=== PATIENT | female | born 1990 | race Caucasian/White ===

== ENCOUNTER 2018-07-02 12:16 | Inpatient (IN) ==
[2018-07-02] MEDS ORDERED: LEVSIN/MAALOX/LIDOC VISC PO ONE (12:41)
[2018-07-02] MEDS ORDERED: ZOFRAN INJ 4 MG VIAL IVP ONE (12:41)
--- NOTE | 2018-07-02 12:43 | ED.ABDFE ---
HPI - PCP Primary Care Physician: NFD - Complaint Chief Complaint Doctors Comments: Patient is complaining of epigastric pain for about a week that has gotten progressively worst today with vomiting everytime she eat or drink anything. States the pain is worst when she eat or drink anything with the pain being 7 of 10. states she do not have a local doctor and has a history of hypertension and endometrosis. she has had a bilateral tubaligation in 2016. She denies dysura, hematuria or amrita. She smokes 1/2 pack daily and drinks liquor and beer about twice yearly. States she thinks she has an ulcer but has not been diagnosed with one. Chief Complaint:: PATIENT STATED THAT SHE IS HAVING SEVERE UPPER GI PAIN. SHE IS VOMITING AT THIS TIME. SHE STATED THAT HAS LOST ALOT OF WEIGHT SINCE AND SHE CAN'T KEEP ANYTHING DOWN. - Nurses notes reviewed Nurses Notes Review: Yes - Source History Provided: Patient - Mode of arrival Mode of Arrival: Ambulatory - Timing Onset of Chief Complaint: 07/02/18 Came on: Suddenly - Duration Duration: Since Onset How lon Duration: Days - Location Location: RUQ, Epigastric - Severity Severity: Moderate - Quality Quality: Aching, Sharp, Generalized - Context Onset: Gradually History of: Abdominal surgery, Similar pain (dx) - Modifying Worsening Factors: Food Improving Factors: Nothing - Associated signs and symptoms Associated Signs and Symptoms: None, Nausea - Time seen Time Seen by Provider: 07/02/18 12:31 PMH - PMH Past Medical History: Yes Past Medical History: Hypertension Past Surgical History: Yes - Family History History of Family Medical Conditions: No - Social History Does patient currently use any type of tobacco product: No Have you used tobacco products in the last 12 months: No Type of Tobacco Use: None Does any household member use tobacco: No Alcohol Use: Rarely Do you use any recreational Drugs:: No Lives With: Family Lives Where: Home - infectious screening In the last 2 months have you had wt loss of >10#?: NO Have you had fever, night sweats or hemotysis?: No Have you traveled outside the country in the last 6 months?: No Isolation: Standard ROS - Review of Systems Constitutional: No Symptoms Reported, Loss of Appetite Eyes: No Symptoms Reported ENTM: No Symptoms Reported Respiratoy: No Symptoms Reported Cardiovascular: No Symptoms Reported Gastrointestinal/Abdominal: No Symptoms Reported, Abdominal Pain, Nausea Genitourinary: No Symptoms Reported Neurological: No Symptoms Reported Musculoskeletal: No Symptoms Reported Integumentary: No Symptoms Reported Hematologic/Lymphatic: No Symptoms Reported Endocrine: No Symptoms Reported Psychiatric: No Symptoms Reported. negative: See HPI, Anxiety, Depression, Elliott lucinations, Excessive crying, Suicidal, Other PE - General Limitations: No Limitations General Appearance: Alert, In Distress (moderate) - Head Head Exam: Normal Inspection, Atraumatic, Normocephalic - Eyes Eye exam: Normal Appearance, PERRL, EOMI. negative: Scleral Icterus, Conjunctival Injection, Nystagmus, Miosis, Mydrasis, Periorbital Swelling, Periorbital Tenderness, Other - ENT ENT Exam: Normal Exam, Normal Oropharynx, Normal External Ear Exam, Mucous Membranes Moist, TM's Normal Bilaterally - Neck Neck Exam: Normal Inspection, Full ROM, Trachea Midline - Chest Chest Inspection: Normal Inspection, Symmetric Chest Wall Rise. negative: Tenderness, Rash, Abscess, Other - Respiratory Respiratory Exam: Normal Lung Sounds Bilat Respiratory Exam: Bilateral Clear to Auscultation - Cardiovascular Cardiovascular Exam: Regular Rate, Normal Rhythm, Normal Heart Sounds. negative: Bradycardia, Tachycardia, Irregular Rhythm, Systolic Murmur, Diastolic Murmur, Rubs, Gallop, Clicks, JVD, +S1, +S2, +S3, +S4, Other - Abdominal Exam Abdominal Exam: Normal Inspection, Normal Bowel Sounds, Soft, Tenderness (epigastric tenderness) Abdominal Tenderness: Epigastrium, Moderate - Rectal Rectal Exam: Deferred - Back Back Exam: Normal Inspection, Full ROM. negative: Tenderness, (R) CVA Tenderness, (L) CVA Tenderness, Muscle Spasm, Paraspinal Tenderness, Vertebral Tenderness, Rashes, (R) Sciatic Notch Tenderness, (L) Sciatic Notch Tendern, (R) Straight Leg Raise, (L) Straight Leg Raise, Other - Extremeties Extremities Exam: Normal Inspection, Full ROM, Tenderness, Normal Capillary Refill - External Exam: Female: Deferred : Bimanual Exam (female): Deferred - Neurologic Neurological Exam: Alert, Oriented X3, CN II-XII Intact, Reflexes Normal. negative: Normal Gait - Psychiatric Psychiatric Exam: Normal Affect, Normal Mood - Skin Skin Exam: Warm, Dry, Intact, Normal Color - Vital Signs Vitals: Temperature 98.4 F Pulse Rate 69 Respiratory Rate 20 Blood Pressure 135/55 O2 Sat by Pulse Oximetry 98 Course - Reevaluation 1st: Improved - Consultation Called: 14:09 Call Returned: 14:09 (Dr. Nice to admit) - Education/Counseling Education/Counseling: Patient, Family Educated On: Treatment, Diagnosis, Needs for Follow Up ROR - Labs Reviewed Laboratory Results Reviewed?: Yes (All labs and x-ray results reviewed and discussed with patient) Result Diagrams: 07/02/18 13:00 07/02/18 13:00 - XRAY XRAY Interpreted by: Radiologist (CT abdomen: Increased density within the dependent portion of the gallbladder for whick layering sludge or small stones would be suspected.) - Labs Reviewed Laboratory: WBC 10.9 X10^3/uL (3.6-10.0) H 07/02/18 13:00 RBC 4.72 X10^6/uL (3.5-5.4) 07/02/18 13:00 Hgb 13.4 g/dL (12.0-16.0) 07/02/18 13:00 Hct 39.9 % (36.0-47.0) 07/02/18 13:00 MCV 84.4 fL (80.0-100.0) 07/02/18 13:00 MCH 28.3 pg (27.0-34.0) 07/02/18 13:00 MCHC 33.5 g/dL (33.0-35.0) 07/02/18 13:00 RDW 14.2 % (11.6-16.5) 07/02/18 13:00 Plt Count 391 X10^3/uL (150.0-450.0) 07/02/18 13:00 MPV 9.0 fL (7.4-11.0) 07/02/18 13:00 Neut % (Auto) 79.3 % (42.0-75.0) H 07/02/18 13:00 Lymph % (Auto) 12.7 % (21.0-51.0) L 07/02/18 13:00 [place] % (Auto) 7.1 % (0.0-13.0) 07/02/18 13:00 Eos % (Auto) 0.5 % (0.9-2.9) L 07/02/18 13:00 Baso % (Auto) 0.4 % (0.2-1.0) 07/02/18 13:00 Neut # (Auto) 8.6 x10^3/uL (2.2-4.8) H 07/02/18 13:00 Lymph # (Auto) 1.4 X10^3/uL (1.3-2.9) 07/02/18 13:00 [place] # (Auto) 0.8 x10^3/uL (0.3-0.8) 07/02/18 13:00 Eos # (Auto) 0.1 x10^3/uL (0.0-0.2) 07/02/18 13:00 Baso # (Auto) 0.0 X10^3/uL (0.0-0.1) 07/02/18 13:00 Absolute Nucleated RBC 0.0 /100WBC 07/02/18 13:00 Sodium 140 mmol/L (136-145) 07/02/18 13:00 Corrected Sodium TNP 07/02/18 13:00 Potassium 3.5 mmol/L (3.5-5.1) 07/02/18 13:00 Chloride 102 mmol/L (98-107) 07/02/18 13:00 Carbon Dioxide 26.6 mmol/L (21-32) 07/02/18 13:00 BUN 15 mg/dL (7-18) 07/02/18 13:00 Creatinine 0.70 mg/dL (0.55-1.02) 07/02/18 13:00 Est GFR (MDRD) Af Amer > 60 (>60) 07/02/18 13:00 Est GFR (MDRD) Non-Af > 60 (>60) 07/02/18 13:00 Glucose 110 mg/dL (65-99) H 07/02/18 13:00 Calcium 9.6 mg/dL (8.5-10.1) 07/02/18 13:00 Corrected Calcium TNP 07/02/18 13:00 Total Bilirubin 0.90 mg/dL (0.2-1.0) 07/02/18 13:00 AST 337 Units/L (15-37) H 07/02/18 13:00 ALT 765 Units/L (12-78) H 07/02/18 13:00 Alkaline Phosphatase 585 Units/L (46-116) H 07/02/18 13:00 Total Protein 8.3 g/dL (6.4-8.2) H 07/02/18 13:00 Albumin 4.1 g/dL (3.4-5.0) 07/02/18 13:00 Globulin 4.2 g/dL (2.5-4.5) 07/02/18 13:00 Albumin/Globulin Ratio 1.0 Ratio (1.1-2.1) L 07/02/18 13:00 Amylase 36 Units/L (25-115) 07/02/18 13:00 Lipase 105 Units/L (73-393) 07/02/18 13:00 HCG, Qual Negative <10 mIU/mL 07/02/18 13:00 - Diagnosis Discharge Problem: Cholelithiasis, Gastritis, Hyperglycemia, Abnormal liver enzymes Abdominal pain Qualifiers: Abdominal location: right upper quadrant Qualified Code(s): R10.11 - Right upper quadrant pain - Discharge Plan Disposition: ADMITTED INPATIENT Condition: Stable - Follow ups/Referrals Follow ups/Referrals: NFD,None [Primary Care Provider] - 3 days - Instructions
[2018-07-02] MEDS ORDERED: ZOFRAN INJ 4 MG VIAL ONE (13:02)
[2018-07-02 13:07] LABS: BASOPHILS % (AUTO) 0.4 % (0.2-1.0); EOSINOPHILS # (AUTO) 0.1 x10^3/uL (0.0-0.2); EOSINOPHILS % (AUTO) 0.5 % (0.9-2.9); HEMATOCRIT 39.9 % (36.0-47.0); HEMOGLOBIN 13.4 g/dL (12.0-16.0); LYMPHOCYTES # (AUTO) 1.4 X10^3/uL (1.3-2.9); LYMPHOCYTES % (AUTO) 12.7 % (21.0-51.0); MEAN CORPUSCULAR HEMOGLOBIN 28.3 pg (27.0-34.0); MEAN CORPUSCULAR HGB CONC 33.5 g/dL (33.0-35.0); MEAN CORPUSCULAR VOLUME 84.4 fL (80.0-100.0); MONOCYTES # (AUTO) 0.8 x10^3/uL (0.3-0.8); MONOCYTES % (AUTO) 7.1 % (0.0-13.0); NEUTROPHILS # (AUTO) 8.6 x10^3/uL (2.2-4.8); NEUTROPHILS % (AUTO) 79.3 % (42.0-75.0); PLATELET COUNT 391 X10^3/uL (150.0-450.0); RED BLOOD COUNT 4.72 X10^6/uL (3.5-5.4); RED CELL DISTRIBUTION WIDTH 14.2 % (11.6-16.5); WHITE BLOOD COUNT 10.9 X10^3/uL (3.6-10.0)
--- NOTE | 2018-07-02 13:09 | CT ---
HISTORY: Right upper quadrant and epigastric pain Study: CT abdomen and pelvis without contrast Comparison: None Technique: Multiple axial images of the abdomen and pelvis were obtained from the lung bases to the pubic symphysis without the administration of IV contrast. Findings: The visualized portions of the lung bases are unremarkable. The liver, spleen, pancreas, kidneys, and adrenal glands are unremarkable in their CT appearance. Density layering within the dependent portion of the gallbladder is observed may represent small stones or layering sludge. Right upper quadrant abdominal ultrasound would better well characterize these findings. A retrocecal appendix is incidentally noted but normal in CT appearance. No significant mesenteric lymphadenopathy or stranding can be observed. No free fluid or free air is seen within the abdomen. No bowel wall thickening or bowel dilatation is present. The colon is unremarkable. Specifically, there is no diverticulosis noted within the sigmoid colon. The urinary bladder is grossly unremarkable. The bony structures are grossly intact. IMPRESSION: Increased density within the dependent portion of the gallbladder for which layering sludge or small stones would be suspected. Right upper quadrant abdominal ultrasound is recommended for further characterization. No CT evidence for acute cholecystitis can be identified at this time. Reported By:
[2018-07-02 13:29] LABS: ALANINE AMINOTRANSFERASE 765 Units/L (12-78); ALBUMIN 4.1 g/dL (3.4-5.0); ALKALINE PHOSPHATASE 585 Units/L (46-116); AMYLASE 36 Units/L (25-115); ASPARTATE AMINO TRANSFERASE 337 Units/L (15-37); BLOOD UREA NITROGEN 15 mg/dL (7-18); CALCIUM 9.6 mg/dL (8.5-10.1); CARBON DIOXIDE 26.6 mmol/L (21-32); CHLORIDE 102 mmol/L (98-107); LIPASE 105 Units/L (73-393); SODIUM 140 mmol/L (136-145); TOTAL PROTEIN 8.3 g/dL (6.4-8.2); eGFR NON BLACK RACES > 60 (>60)
[2018-07-02 13:31] LABS: SERUM PREGNANCY TEST, QUAL NEGATIVE <10 mIU/mL
[2018-07-02] MEDS ORDERED: LEVSIN/MAALOX/LIDOC VISC ONE (14:36)
[2018-07-02] MEDS: NS 1/2 + KCL 20 MEQ/L 1,000 ML IV SCH ×2 (15:44→23:02)
[2018-07-02] MEDS: TORADOL 30 MG VIAL IVP PRN (15:44)
[2018-07-02] MEDS: ZOSYN VIAL 3.375 GRAMS 3.375 G in NS 100 ML IV + SPIKE MINIBAG* 100 ML IV SCH ×2 (15:44→22:05)
[2018-07-02] MEDS: PEPCID 20 MG IV PREMIX* 20 MG/50 ML BAG IV PRN (15:45)
[2018-07-02] MEDS: ZOFRAN INJ 4 MG VIAL IVP PRN (20:05)
[2018-07-02 23:06] LABS: BILIRUBIN,URINE NEGATIVE (NEGATIVE); BLOOD/HEMOGLOBIN,URINE NEGATIVE (NEGATIVE); GLUCOSE, URINE NEGATIVE (NEGATIVE); KETONES,URINE 2+ (NEGATIVE); LEUKOCYTE ESTERASE ,URINE 1+ (NEGATIVE); NITRITES,URINE NEGATIVE (NEGATIVE); PROTEIN,URINE 1+ (NEGATIVE); UROBILINOGEN,URINE NORMAL (NORMAL)
[2018-07-02 23:14] LABS: APPEARANCE,URINE CLOUDY (CLEAR); COLOR,URINE YELLOW (YELLOW)
[2018-07-02 23:21] LABS: BACTERIA,URINE 1+ /HPF (NEGATIVE); RBC,URINE NONE SEEN /HPF (NONE SEEN); SQUAMOUS EPITHELIAL CELL,UR NUMEROUS /HPF (NEGATIVE)
[2018-07-03] MEDS: ZOFRAN INJ 4 MG VIAL IVP PRN ×2 (04:21→16:25)
[2018-07-03] MEDS: ZOSYN VIAL 3.375 GRAMS 3.375 G in NS 100 ML IV + SPIKE MINIBAG* 100 ML IV SCH ×3 (05:04→21:06)
[2018-07-03 05:19] LABS: BASOPHILS % (AUTO) 0.6 % (0.2-1.0); EOSINOPHILS # (AUTO) 0.2 x10^3/uL (0.0-0.2); EOSINOPHILS % (AUTO) 2.5 % (0.9-2.9); HEMOGLOBIN 11.5 g/dL (12.0-16.0); LYMPHOCYTES # (AUTO) 2.5 X10^3/uL (1.3-2.9); LYMPHOCYTES % (AUTO) 35.6 % (21.0-51.0); MEAN CORPUSCULAR HEMOGLOBIN 28.2 pg (27.0-34.0); MEAN CORPUSCULAR VOLUME 85.5 fL (80.0-100.0); MEAN PLATELET VOLUME 9.6 fL (7.4-11.0); MONOCYTES # (AUTO) 0.6 x10^3/uL (0.3-0.8); MONOCYTES % (AUTO) 8.8 % (0.0-13.0); NEUTROPHILS # (AUTO) 3.7 x10^3/uL (2.2-4.8); NEUTROPHILS % (AUTO) 52.5 % (42.0-75.0); PLATELET COUNT 347 X10^3/uL (150.0-450.0); RED BLOOD COUNT 4.09 X10^6/uL (3.5-5.4); RED CELL DISTRIBUTION WIDTH 14.5 % (11.6-16.5)
[2018-07-03 05:37] LABS: ALANINE AMINOTRANSFERASE 663 Units/L (12-78); ALKALINE PHOSPHATASE 425 Units/L (46-116); ASPARTATE AMINO TRANSFERASE 282 Units/L (15-37); BLOOD UREA NITROGEN 15 mg/dL (7-18); CALCIUM 8.6 mg/dL (8.5-10.1); CARBON DIOXIDE 25.7 mmol/L (21-32); CHLORIDE 106 mmol/L (98-107); COR CA(FOR HYPOALB) 9.4 mg/dL (8.5-10.1); CREATININE 0.69 mg/dL (0.55-1.02); SODIUM 140 mmol/L (136-145); TOTAL PROTEIN 6.5 g/dL (6.4-8.2); eGFR NON BLACK RACES > 60 (>60)
[2018-07-03] MEDS: NS 1/2 + KCL 20 MEQ/L 1,000 ML IV SCH ×3 (07:10→21:06)
[2018-07-03] MEDS: TORADOL 30 MG VIAL IVP PRN ×2 (07:10→16:25)
--- NOTE | 2018-07-03 11:04 | DR.H&P ---
H&P - History & Physical for Day of: H&P Date: 07/02/18 - Chief Complaint Chief Complaint: UPPER ABDOMINAL PAIN, N/V - History of Present Illness History of Present Illness: 28F ER ADMISSION WITH CO UPPER ABDOMINAL PAIN WITH N/V, PERSISTANT FOR SEVERAL DAYS. PT HAD ELEVATED LFT'S ON CMP IN ER AND ABNORMAL GB FINDINGS ON CT. PT DENIES ANY KNOWN HX OF GALLBLADDER DISEASE. 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 - Social History Does patient currently use any type of tobacco product: No Have you used tobacco products in the last 12 months: No Type of Tobacco Use: None Does any household member use tobacco: No Alcohol Use: Rarely Drug Use: None - Medications Home Medications: No Known Drug Allergies Allergy (Verified 07/02/18 13:08) CONTINUE taking the following medications NK 07/02/18 [History] - Review of Systems Constitutional: No Symptoms Reported Eyes: No Symptoms Reported ENT: No Symptoms Reported Respiratory: No Symptoms Reported Cardiovascular: No Symptoms Reported Gastrointestinal: Nausea, Vomiting, Abdominal Pain Genitourinary: No Symptoms Reported Musculoskeletal: No Symptoms Reported Skin: No Symptoms Reported Neurological: No Symptoms Reported - Physical Exam Vital Signs: Temperature 97.9 F Pulse Rate [Left Brachial] 58 Pulse Rate 69 Respiratory Rate 20 Blood Pressure [Left Arm] 94/50 Blood Pressure 135/55 O2 Sat by Pulse Oximetry 100 Oriented: Normal Eyes: Normal Ear: Normal Nose: Normal Throat: Normal Respiratory: Clear Throughout Cardiovascular: Normal : Normal Auscultation: Bowel Sounds: Normal Palpation: Normal Tenderness: RUQ, Epigastric Skin: Normal Musculoskeletal: Normal Psychiatric: Normal Speech Pattern: Clear, Appropriate - Assessment/Plan (1) Abdominal pain Qualifiers: Abdominal location: right upper quadrant Qualified Code(s): R10.11 - Right upper quadrant pain Status: Acute Plan: ADMIT, NPO, GENTLE IV HYDRATION. GB US, THEN CONSULT DR SIMS. PAIN AND NAUSEA CONTROL, BP MONITORING. VERIFY HOME MEDICATION, REPEAT AM LABS (2) Cholelithiasis Status: Acute (3) Gastritis Status: Acute (4) Abnormal liver enzymes Status: Acute - Allergies Allergies/Adverse Reactions: Allergies Allergy/AdvReac Type Severity Reaction Status Date / Time No Known Drug Allergies Allergy Verified 07/02/18 13:08
[2018-07-03] MEDS ORDERED: COLACE CAP 100 MG PO PRN (16:00)
[2018-07-03] MEDS ORDERED: MILK OF MAGNESIA PO PRN (16:00)
[2018-07-03] MEDS ORDERED: PHENERGAN INJ 25 MG ONE (17:14)
[2018-07-03] MEDS: PHENERGAN INJ 25 MG IV PRN (17:21)
[2018-07-04] MEDS: NS 1/2 + KCL 20 MEQ/L 1,000 ML IV SCH ×6 (00:01→21:25)
[2018-07-04] MEDS: ZOSYN VIAL 3.375 GRAMS 3.375 G in NS 100 ML IV + SPIKE MINIBAG* 100 ML IV SCH ×3 (05:14→21:26)
[2018-07-04 05:54] LABS: BASOPHILS # (AUTO) 0.1 X10^3/uL (0.0-0.1); BASOPHILS % (AUTO) 1.2 % (0.2-1.0); EOSINOPHILS # (AUTO) 0.2 x10^3/uL (0.0-0.2); EOSINOPHILS % (AUTO) 3.1 % (0.9-2.9); HEMOGLOBIN 11.7 g/dL (12.0-16.0); LYMPHOCYTES % (AUTO) 39.6 % (21.0-51.0); MEAN CORPUSCULAR HEMOGLOBIN 28.4 pg (27.0-34.0); MEAN CORPUSCULAR HGB CONC 33.3 g/dL (33.0-35.0); MEAN CORPUSCULAR VOLUME 85.2 fL (80.0-100.0); MEAN PLATELET VOLUME 9.2 fL (7.4-11.0); MONOCYTES # (AUTO) 0.5 x10^3/uL (0.3-0.8); MONOCYTES % (AUTO) 10.4 % (0.0-13.0); NEUTROPHILS # (AUTO) 2.3 x10^3/uL (2.2-4.8); NEUTROPHILS % (AUTO) 45.7 % (42.0-75.0); PLATELET COUNT 320 X10^3/uL (150.0-450.0); RED BLOOD COUNT 4.11 X10^6/uL (3.5-5.4); RED CELL DISTRIBUTION WIDTH 14.4 % (11.6-16.5)
[2018-07-04 06:13] LABS: ALANINE AMINOTRANSFERASE 645 Units/L (12-78); ALKALINE PHOSPHATASE 408 Units/L (46-116); ASPARTATE AMINO TRANSFERASE 300 Units/L (15-37); BLOOD UREA NITROGEN 11 mg/dL (7-18); CALCIUM 8.6 mg/dL (8.5-10.1); CARBON DIOXIDE 27.1 mmol/L (21-32); CHLORIDE 107 mmol/L (98-107); COR CA(FOR HYPOALB) 9.4 mg/dL (8.5-10.1); CREATININE 0.71 mg/dL (0.55-1.02); SODIUM 139 mmol/L (136-145); TOTAL PROTEIN 6.3 g/dL (6.4-8.2); eGFR NON BLACK RACES > 60 (>60)
--- NOTE | 2018-07-04 10:05 | US ---
HISTORY: Right upper quadrant pain. Study: Right upper quadrant ultrasound: Multiplanar ultrasonographic examination of the right upper abdominal quadrant was performed. Comparison: CT scan 07/02/2018 Findings: On the images submitted me the liver is of normal size and echotexture. It appears to be minimally fatty infiltrated. Vascular flow was in normal direction. Gallbladder shows near complete shadowing felt to most likely be due to numerous gallstones in a contracted gallbladder. There appears to be mild gallbladder wall thickening measuring up to 5.5 mm in thickness. The common bile duct is normal at 3 mm. The right kidney as visualized is of normal size, echogenicity and echotexture measuring 9.7 cm in length by 4.4 x 5.4 cm. The resistive index is 0.24. The pancreas is visualized is normal. IMPRESSION: 1. Cholelithiasis with findings suggesting the possibility of cholecystitis. Clinical correlation is recommended. 2. Minimal fatty infiltration of the liver. Reported By:
--- NOTE | 2018-07-04 10:12 | MRI ---
MR abdomen without contrast MRCP Indication: Abnormal liver function tests and nausea. Right upper quadrant pain Comparison: 07/02/2018 CT abdomen and pelvis and ultrasound from 07/04/2018 Technique: Multiplanar multisequence imaging through the abdomen without contrast. MRCP and 3D images provided. Findings: Bone marrow signal is relatively normal. Spinal canal is normal. Limited images the lower chest show no acute abnormality. The liver, spleen, adrenal glands and pancreas are normal. Neurovascular structures are normal. Visualized bowel loops show no significant abnormality. Urinary bladder partially visualized uterus appears normal. No adnexal region lesions seen. Appendix is normal. There is [place] cap of the gallbladder, in the gallbladder is filled with stones. There is mild dilatation of the common bile duct to 1 cm on coronal image 17 with minimal intrahepatic biliary dilatation. Filling defects seen at the distal common bile duct, just proximal to the ampulla of Vater is noted on coronal image 18, with 2 stones suggested-proximal stone measuring 3 mm, distal stone measuring 5 mm. Kidneys are grossly normal with tiny left lower pole renal cyst noted. Out of phase imaging shows no signal drop suggest hepatic steatosis. Axial T2 image nineteen, series 1101 confirm stone in the common bile duct. MRCP image 49 also shows common bile duct stone. There are questionable areas of mild narrowing at the confluence of the left and right main hepatic ducts on coronal images 46, and narrowing of the common bile duct, just distal to the stones on coronal image 50. Impression: 1. Two stones in the distal common bile duct, just above the ampulla of Vater, with proximal biliary dilatation. 2. Numerous gallstones in the gallbladder 3. Areas of narrowing at the left and right hepatic duct confluence and the distal common bile duct are nonspecific. ERCP follow-up recommended. Underlying strictures or inflammatory change from biliary infection or primary sclerosing cholangitis not excluded. Reported By:
[2018-07-04] MEDS ORDERED: BACTROBAN TOPICAL OINT ONE (10:16)
[2018-07-04] MEDS ORDERED: ANCEF VIAL 1 GRAM ONE (10:16)
[2018-07-04] MEDS ORDERED: LR 1000 ML IV 1,000 ML IV ONE (10:16)
[2018-07-04] MEDS ORDERED: DILAUDID INJ IVP PRN (12:05)
[2018-07-04] MEDS ORDERED: BENADRYL INJ 50 MG VIAL IVP PRN (12:05)
[2018-07-04] MEDS ORDERED: PHENERGAN INJ 25 MG IVP PRN (12:05)
[2018-07-04] MEDS ORDERED: REGLAN INJ 10 MG VIAL IVP PRN (12:05)
[2018-07-04] MEDS ORDERED: ZOFRAN INJ 4 MG VIAL IVP PRN (12:05)
[2018-07-04] MEDS ORDERED: DILAUDID INJ ONE (12:17)
[2018-07-04 12:43] VITALS: BMI 30.9
[2018-07-04] MEDS ORDERED: NS IRRIGATION 3000 ML ONE (13:47)
[2018-07-04] MEDS ORDERED: XYLOCAINE 1 % (PLAIN) ONE (15:25)
[2018-07-04] MEDS ORDERED: NEOSTIGMINE INJ ONE (15:25)
[2018-07-04] MEDS ORDERED: SUPRANE IN ONE (15:25)
[2018-07-04] MEDS ORDERED: TORADOL 30 MG VIAL ONE (15:25)
[2018-07-04] MEDS ORDERED: ZOFRAN INJ 4 MG VIAL ONE (15:25)
[2018-07-04] MEDS ORDERED: NORCURON INJ 10 MG VIAL ONE (15:25)
[2018-07-04] MEDS ORDERED: QUELICIN (OR ANECTINE) ONE (15:25)
[2018-07-04] MEDS ORDERED: VERSED ONE (15:25)
[2018-07-04] MEDS ORDERED: ROBINUL ONE (15:25)
[2018-07-04] MEDS ORDERED: DIPRIVAN VIAL ONE (15:25)
--- NOTE | 2018-07-04 17:24 | PCM.PROG ---
Progress Note - Progress Note for Day of Date of Exam: 07/03/18 - Subjective Subjective: 28 WF ADMITTED ON 07/02 WITH RUQ PAIN N/V, POSSILBE ACUTE CHOLECYSTITIS WITH ELEVATED LIVER ENZYMES. PT CURRENTLY ON CLEAR LIQUIDS AND PAIN CONTROL. SURGICAL CONSULT, AM GB US AND MRCP. - Past Medical Family Social History Past Med/Fam/Surg Hx: No changes since H&P Allergies: Allergies No Known Drug Allergies Allergy (Verified 07/02/18 13:08) - Review of Systems ROS: No change since H&P - Vital Signs and I&O's Vital Signs: Temperature 97.0 F Pulse Rate [Left Brachial] 51 Pulse Rate 59 Respiratory Rate 18 Blood Pressure [Left Arm] 103/64 Blood Pressure 94/54 O2 Sat by Pulse Oximetry 97 Intake and Output: Intake & Output 07/02/18 07/03/18 07/04/18 07/05/18 11:59 11:59 11:59 11:59 Intake Total 2120 / 2120 3770 / 3770 120 / 120 Output Total 100 / 100 1750 / 1750 Balance 2019 3770 / 3770 -1630 / -1630 - Physical Exam Oriented: Normal Eyes: Normal Ear: Normal Nose: Normal Throat: Normal Respiratory: Normal Cardiovascular: Normal : Normal Auscultation: Bowel Sounds: Normal Tenderness: RUQ, Epigastric Skin: Normal Musculoskeletal: Normal Psychiatric: Normal Mood Description: Calm Speech Pattern: Clear, Appropriate - Laboratory and Diagnostics Result Diagrams: 07/04/18 05:41 07/04/18 05:41 Labs: 07/02/18 22:35 Urine,Clean Catch Urine Culture - Final Laboratory WBC 5.0 X10^3/uL (3.6-10.0) 07/04/18 05:41 RBC 4.11 X10^6/uL (3.5-5.4) 07/04/18 05:41 Hgb 11.7 g/dL (12.0-16.0) L 07/04/18 05:41 Hct 35.0 % (36.0-47.0) L 07/04/18 05:41 MCV 85.2 fL (80.0-100.0) 07/04/18 05:41 MCH 28.4 pg (27.0-34.0) 07/04/18 05:41 MCHC 33.3 g/dL (33.0-35.0) 07/04/18 05:41 RDW 14.4 % (11.6-16.5) 07/04/18 05:41 Plt Count 320 X10^3/uL (150.0-450.0) 07/04/18 05:41 MPV 9.2 fL (7.4-11.0) 07/04/18 05:41 Neut % (Auto) 45.7 % (42.0-75.0) 07/04/18 05:41 Lymph % (Auto) 39.6 % (21.0-51.0) 07/04/18 05:41 [place] % (Auto) 10.4 % (0.0-13.0) 07/04/18 05:41 Eos % (Auto) 3.1 % (0.9-2.9) H 07/04/18 05:41 Baso % (Auto) 1.2 % (0.2-1.0) H 07/04/18 05:41 Neut # (Auto) 2.3 x10^3/uL (2.2-4.8) 07/04/18 05:41 Lymph # (Auto) 2.0 X10^3/uL (1.3-2.9) 07/04/18 05:41 [place] # (Auto) 0.5 x10^3/uL (0.3-0.8) 07/04/18 05:41 Eos # (Auto) 0.2 x10^3/uL (0.0-0.2) 07/04/18 05:41 Baso # (Auto) 0.1 X10^3/uL (0.0-0.1) 07/04/18 05:41 Absolute Nucleated RBC 0.0 /100WBC 07/04/18 05:41 Sodium 139 mmol/L (136-145) 07/04/18 05:41 Corrected Sodium TNP 07/04/18 05:41 Potassium 4.3 mmol/L (3.5-5.1) 07/04/18 05:41 Chloride 107 mmol/L (98-107) 07/04/18 05:41 Carbon Dioxide 27.1 mmol/L (21-32) 07/04/18 05:41 BUN 11 mg/dL (7-18) 07/04/18 05:41 Creatinine 0.71 mg/dL (0.55-1.02) 07/04/18 05:41 Est GFR (MDRD) Af Amer > 60 (>60) 07/04/18 05:41 Est GFR (MDRD) Non-Af > 60 (>60) 07/04/18 05:41 Glucose 92 mg/dL (65-99) 07/04/18 05:41 Calcium 8.6 mg/dL (8.5-10.1) 07/04/18 05:41 Corrected Calcium 9.4 mg/dL (8.5-10.1) 07/04/18 05:41 Total Bilirubin 1.10 mg/dL (0.2-1.0) H 07/04/18 05:41 AST 300 Units/L (15-37) H 07/04/18 05:41 ALT 645 Units/L (12-78) H 07/04/18 05:41 Alkaline Phosphatase 408 Units/L (46-116) H 07/04/18 05:41 Total Protein 6.3 g/dL (6.4-8.2) L 07/04/18 05:41 Albumin 3.0 g/dL (3.4-5.0) L 07/04/18 05:41 Globulin 3.3 g/dL (2.5-4.5) 07/04/18 05:41 Albumin/Globulin Ratio 0.9 Ratio (1.1-2.1) L 07/04/18 05:41 Amylase 36 Units/L (25-115) 07/02/18 13:00 Lipase 105 Units/L (73-393) 07/02/18 13:00 HCG, Qual Negative <10 mIU/mL 07/02/18 13:00 Specimen Type Clean catch urine 07/02/18 22:35 Urine Color Yellow (YELLOW) 07/02/18 22:35 Urine Appearance Cloudy (CLEAR) 07/02/18 22:35 Urine pH 6.0 (5.0 - 8.0) 07/02/18 22:35 Ur Specific [place] 1.020 (1.000-1.030) 07/02/18 22:35 Urine Protein 1+ (NEGATIVE) 07/02/18 22:35 Urine Glucose (UA) Negative (NEGATIVE) 07/02/18 22:35 Urine Ketones 2+ (NEGATIVE) 07/02/18 22:35 Urine Occult Blood Negative (NEGATIVE) 07/02/18 22:35 Urine Nitrite Negative (NEGATIVE) 07/02/18 22:35 Urine Bilirubin Negative (NEGATIVE) 07/02/18 22:35 Urine Urobilinogen Normal (NORMAL) 07/02/18 22:35 Ur Leukocyte Esterase 1+ (NEGATIVE) 07/02/18 22:35 Urine RBC None seen /HPF (NONE SEEN) 07/02/18 22:35 Urine WBC 5-10 /HPF (NONE SEEN) 07/02/18 22:35 Ur Squamous Epith Cells Numerous /HPF (NEGATIVE) 07/02/18 22:35 Urine Bacteria 1+ /HPF (NEGATIVE) 07/02/18 22:35 Ur Culture Indicated? Yes/culture set up 07/02/18 22:35 Tissue Pathology To follow 07/04/18 12:04 - Plan (1) Abdominal pain Status: Acute Qualifiers: Abdominal location: right upper quadrant Qualified Code(s): R10.11 - Right upper quadrant pain Plan: NPO, GENTLE IV HYDRATION. GB US AND MRCP, CONSULT DR ISMS. PAIN AND NAUSEA CONTROL, BP MONITORING. VERIFY HOME MEDICATION, REPEAT AM LABS (2) Cholelithiasis Status: Acute (3) Gastritis Status: Acute (4) Abnormal liver enzymes Status: Acute
--- NOTE | 2018-07-04 17:41 | DR.CONSULT ---
Consult - Consultation for Day of: Date: 07/04/18 - Chief Complaint Chief Complaint: Patient referred for CBD stones. Pateint blairht complaints of abdominal pain. - History of Present Illness History of Present Illness: Patient is a 28yo female who was referred for CBD stones. Patient is S/P cholecystectomy performed today. Patient states she is having abdominal pain but is better than it was prior to surgery. She has been tolerating diet since surgery. MRCP done showed Two stones in the distal common bile duct, just above the ampulla of Vater, with proximal biliary dilatation, Numerous gallstones in the gallbladder and Areas of narrowing at the left and right hepatic duct confluence and the distal common bile duct are nonspecific. T. 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 - Social History Does patient currently use any type of tobacco product: No Have you used tobacco products in the last 12 months: No Type of Tobacco Use: Cigarettes (1 pack per 2 weeks) Does any household member use tobacco: No Alcohol Use: Rarely Drug Use: None - Medications Home Medications: No Known Drug Allergies Allergy (Verified 07/02/18 13:08) New Prescriptions hydrocodone-acetaminophen [[place]] 1 tab PO Q4H PRN #20 tab 07/04/18 [Rx] ondansetron HCl [Zofran] 4 mg PO Q6H PRN #20 tab 07/04/18 [Rx] - Review of Systems Gastrointestinal: See HPI, Abdominal Pain (diffuse states its more soreness now, not sharp pain like prior to having gallbladder removed.). denies: Nausea, Vomiting, Diarrhea, Constipation, Melena, Hematochezia, Other - Physical Exam Vital Signs: Temperature 98.0 F Pulse Rate [Left Brachial] 71 Pulse Rate 59 Respiratory Rate 18 Blood Pressure [Left Arm] 114/70 Blood Pressure 94/54 O2 Sat by Pulse Oximetry 97 Oriented: Normal Eyes: Normal Ear: Normal Nose: Normal Throat: Normal Respiratory: Clear Throughout Cardiovascular: Normal Auscultation: Bowel Sounds: Normal Palpation: Normal, Other (dressings noted to abdomen dry and intact). negative: Spleen Enlarged, Liver Enlarged, Mass Pulsatile Tenderness: Diffuse Skin: Normal Musculoskeletal: Normal Psychiatric: Normal Mood Description: Calm Speech Pattern: Clear, Appropriate - Plan Plan: Assessment. 1. Choledocholithiasis, S/P cholecystectomy. 2. Abnormal LFT likely secondary to Choledocholithiasis. Plan. 1. Monitor LFTS if LFTs do not improve will need ERCP and will need to be transferred to [facility] to have this performed. Plan reviewed with Dr. Bai - Allergies Allergies/Adverse Reactions: Allergies Allergy/AdvReac Type Severity Reaction Status Date / Time No Known Drug Allergies Allergy Verified 07/02/18 13:08
--- NOTE | 2018-07-04 17:53 | PCM.PROG ---
Progress Note - Progress Note for Day of Date of Exam: 07/04/18 - Subjective Subjective: 28 WF ADMITTED ON 07/02 WITH RUQ PAIN N/V, POSSILBE ACUTE CHOLECYSTITIS WITH ELEVATED LIVER ENZYMES. PT CURRENTLY NPO FOR GB US AND MRCP, PAIN CONTROL AND DR STRONG CONSULTING - Past Medical Family Social History Past Med/Fam/Surg Hx: No changes since H&P Allergies: Allergies No Known Drug Allergies Allergy (Verified 07/02/18 13:08) - Review of Systems ROS: No change since H&P - Vital Signs and I&O's Vital Signs: Temperature 98.0 F Pulse Rate [Left Brachial] 71 Pulse Rate 59 Respiratory Rate 18 Blood Pressure [Left Arm] 114/70 Blood Pressure 94/54 O2 Sat by Pulse Oximetry 97 Intake and Output: Intake & Output 07/02/18 07/03/18 07/04/18 07/05/18 11:59 11:59 11:59 11:59 Intake Total 2120 / 2120 3770 / 3770 120 / 120 Output Total 100 / 100 1750 / 1750 Balance 2019 3770 / 3770 -1630 / -1630 - Physical Exam Oriented: Normal Eyes: Normal Ear: Normal Nose: Normal Throat: Normal Respiratory: Normal Cardiovascular: Normal : Normal Auscultation: Bowel Sounds: Normal Tenderness: Diffuse Skin: Normal Musculoskeletal: Normal Psychiatric: Normal Mood Description: Calm Speech Pattern: Clear, Appropriate - Laboratory and Diagnostics Result Diagrams: 07/04/18 05:41 07/04/18 05:41 Labs: 07/02/18 22:35 Urine,Clean Catch Urine Culture - Final Laboratory WBC 5.0 X10^3/uL (3.6-10.0) 07/04/18 05:41 RBC 4.11 X10^6/uL (3.5-5.4) 07/04/18 05:41 Hgb 11.7 g/dL (12.0-16.0) L 07/04/18 05:41 Hct 35.0 % (36.0-47.0) L 07/04/18 05:41 MCV 85.2 fL (80.0-100.0) 07/04/18 05:41 MCH 28.4 pg (27.0-34.0) 07/04/18 05:41 MCHC 33.3 g/dL (33.0-35.0) 07/04/18 05:41 RDW 14.4 % (11.6-16.5) 07/04/18 05:41 Plt Count 320 X10^3/uL (150.0-450.0) 07/04/18 05:41 MPV 9.2 fL (7.4-11.0) 07/04/18 05:41 Neut % (Auto) 45.7 % (42.0-75.0) 07/04/18 05:41 Lymph % (Auto) 39.6 % (21.0-51.0) 07/04/18 05:41 [place] % (Auto) 10.4 % (0.0-13.0) 07/04/18 05:41 Eos % (Auto) 3.1 % (0.9-2.9) H 07/04/18 05:41 Baso % (Auto) 1.2 % (0.2-1.0) H 07/04/18 05:41 Neut # (Auto) 2.3 x10^3/uL (2.2-4.8) 07/04/18 05:41 Lymph # (Auto) 2.0 X10^3/uL (1.3-2.9) 07/04/18 05:41 [place] # (Auto) 0.5 x10^3/uL (0.3-0.8) 07/04/18 05:41 Eos # (Auto) 0.2 x10^3/uL (0.0-0.2) 07/04/18 05:41 Baso # (Auto) 0.1 X10^3/uL (0.0-0.1) 07/04/18 05:41 Absolute Nucleated RBC 0.0 /100WBC 07/04/18 05:41 Sodium 139 mmol/L (136-145) 07/04/18 05:41 Corrected Sodium TNP 07/04/18 05:41 Potassium 4.3 mmol/L (3.5-5.1) 07/04/18 05:41 Chloride 107 mmol/L (98-107) 07/04/18 05:41 Carbon Dioxide 27.1 mmol/L (21-32) 07/04/18 05:41 BUN 11 mg/dL (7-18) 07/04/18 05:41 Creatinine 0.71 mg/dL (0.55-1.02) 07/04/18 05:41 Est GFR (MDRD) Af Amer > 60 (>60) 07/04/18 05:41 Est GFR (MDRD) Non-Af > 60 (>60) 07/04/18 05:41 Glucose 92 mg/dL (65-99) 07/04/18 05:41 Calcium 8.6 mg/dL (8.5-10.1) 07/04/18 05:41 Corrected Calcium 9.4 mg/dL (8.5-10.1) 07/04/18 05:41 Total Bilirubin 1.10 mg/dL (0.2-1.0) H 07/04/18 05:41 AST 300 Units/L (15-37) H 07/04/18 05:41 ALT 645 Units/L (12-78) H 07/04/18 05:41 Alkaline Phosphatase 408 Units/L (46-116) H 07/04/18 05:41 Total Protein 6.3 g/dL (6.4-8.2) L 07/04/18 05:41 Albumin 3.0 g/dL (3.4-5.0) L 07/04/18 05:41 Globulin 3.3 g/dL (2.5-4.5) 07/04/18 05:41 Albumin/Globulin Ratio 0.9 Ratio (1.1-2.1) L 07/04/18 05:41 Amylase 36 Units/L (25-115) 07/02/18 13:00 Lipase 105 Units/L (73-393) 07/02/18 13:00 HCG, Qual Negative <10 mIU/mL 07/02/18 13:00 Specimen Type Clean catch urine 07/02/18 22:35 Urine Color Yellow (YELLOW) 07/02/18 22:35 Urine Appearance Cloudy (CLEAR) 07/02/18 22:35 Urine pH 6.0 (5.0 - 8.0) 07/02/18 22:35 Ur Specific [place] 1.020 (1.000-1.030) 07/02/18 22:35 Urine Protein 1+ (NEGATIVE) 07/02/18 22:35 Urine Glucose (UA) Negative (NEGATIVE) 07/02/18 22:35 Urine Ketones 2+ (NEGATIVE) 07/02/18 22:35 Urine Occult Blood Negative (NEGATIVE) 07/02/18 22:35 Urine Nitrite Negative (NEGATIVE) 07/02/18 22:35 Urine Bilirubin Negative (NEGATIVE) 07/02/18 22:35 Urine Urobilinogen Normal (NORMAL) 07/02/18 22:35 Ur Leukocyte Esterase 1+ (NEGATIVE) 07/02/18 22:35 Urine RBC None seen /HPF (NONE SEEN) 07/02/18 22:35 Urine WBC 5-10 /HPF (NONE SEEN) 07/02/18 22:35 Ur Squamous Epith Cells Numerous /HPF (NEGATIVE) 07/02/18 22:35 Urine Bacteria 1+ /HPF (NEGATIVE) 07/02/18 22:35 Ur Culture Indicated? Yes/culture set up 07/02/18 22:35 Tissue Pathology To follow 07/04/18 12:04 - Plan (1) Abdominal pain Status: Acute Qualifiers: Abdominal location: right upper quadrant Qualified Code(s): R10.11 - Right upper quadrant pain Plan: NPO, GENTLE IV HYDRATION. GB US AND MRCP, CONSULT DR SIMS. PAIN AND NAUSEA CONTROL, BP MONITORING. VERIFY HOME MEDICATION, REPEAT AM LABS (2) Cholelithiasis Status: Acute (3) Gastritis Status: Acute (4) Abnormal liver enzymes Status: Acute
[2018-07-04 18:38] LABS: ALBUMIN 3.4 g/dL (3.4-5.0); BILIRUBIN,DIRECT 0.3 mg/dL (0-0.2); TOTAL PROTEIN 7.3 g/dL (6.4-8.2)
[2018-07-04] MEDS: TORADOL 30 MG VIAL IVP PRN (20:43)
[2018-07-04] MEDS: ZOFRAN INJ 4 MG VIAL IVP PRN (22:35)
[2018-07-04] MEDS: PHENERGAN INJ 25 MG IV PRN (23:48)
[2018-07-05] MEDS: NS 1/2 + KCL 20 MEQ/L 1,000 ML IV SCH ×3 (01:46→14:32)
[2018-07-05] MEDS: TORADOL 30 MG VIAL IVP PRN ×2 (03:07→11:45)
[2018-07-05] MEDS: PEPCID 20 MG IV PREMIX* 20 MG/50 ML BAG IV PRN (03:20)
[2018-07-05] MEDS: ZOSYN VIAL 3.375 GRAMS 3.375 G in NS 100 ML IV + SPIKE MINIBAG* 100 ML IV SCH ×2 (05:30→14:32)
[2018-07-05 06:10] LABS: ALBUMIN 3.2 g/dL (3.4-5.0); BILIRUBIN,DIRECT 1.8 mg/dL (0-0.2)
[2018-07-05 08:59] LABS: BASOPHILS % (AUTO) 0.5 % (0.2-1.0); EOSINOPHILS % (AUTO) 0.3 % (0.9-2.9); HEMATOCRIT 37.9 % (36.0-47.0); HEMOGLOBIN 12.5 g/dL (12.0-16.0); LYMPHOCYTES % (AUTO) 13.5 % (21.0-51.0); MEAN CORPUSCULAR HGB CONC 32.9 g/dL (33.0-35.0); MEAN CORPUSCULAR VOLUME 85.1 fL (80.0-100.0); MONOCYTES # (AUTO) 0.6 x10^3/uL (0.3-0.8); MONOCYTES % (AUTO) 8.2 % (0.0-13.0); NEUTROPHILS # (AUTO) 5.8 x10^3/uL (2.2-4.8); NEUTROPHILS % (AUTO) 77.5 % (42.0-75.0); PLATELET COUNT 333 X10^3/uL (150.0-450.0); RED BLOOD COUNT 4.45 X10^6/uL (3.5-5.4); RED CELL DISTRIBUTION WIDTH 14.5 % (11.6-16.5); WHITE BLOOD COUNT 7.4 X10^3/uL (3.6-10.0)
[2018-07-05 11:04] VITALS: BP 115/78
[2018-07-05 11:21] LABS: CHLORIDE 103 mmol/L (98-107); SODIUM 138 mmol/L (136-145)
[2018-07-05 11:22] LABS: BLOOD UREA NITROGEN 5 mg/dL (7-18); CALCIUM 9.1 mg/dL (8.5-10.1); CARBON DIOXIDE 22.4 mmol/L (21-32); CREATININE 0.62 mg/dL (0.55-1.02); eGFR NON BLACK RACES > 60 (>60)
== END 2018-07-05 15:20 | disposition short-term general hospital (02) | DRG 419 ==
LOC: ER 12:16 → MED/SURG 12:16
PROVIDERS: ADMIT Internal Medicine; ATTEND Internal Medicine
DX: K29.60 Other gastritis without bleeding; R11.2 Nausea with vomiting, unspecified; R10.11 Right upper quadrant pain; K80.12 Calculus of gallbladder with acute and chronic cholecystitis without obstruction; R10.13 Epigastric pain; R73.09 Other abnormal glucose; R74.8 Abnormal levels of other serum enzymes
CPT/HCPCS: 36415; 74176; 74181; 76705; 80048; 80053; 80076; 81001; 82150; 83690; 84703; 85025; 87086; 96365; 96374; 99283; 99284; A4216; A4222; J7030; S0028; G0378; J0330; J0690; J1170; J1885; J2250; J2405; J2543; J2550; J2704; J2710; J3490; J7050; J7120